=== PATIENT | male | born 1960 | race Caucasian/White ===

== ENCOUNTER → 2019-10-24 | Outpatient (CLI) | payer BC ==
[~2019-10-24] MED LIST: NORCO 325 MG-51 TAB PO
== END ==
LOC: COL.RAD
DX: M48.061 Spinal stenosis, lumbar region without neurogenic claudication (principal); M47.816 Spondylosis without myelopathy or radiculopathy, lumbar region; M79.2 Neuralgia and neuritis, unspecified; M79.605 Pain in left leg

== ENCOUNTER 2020-04-22 02:47 | Observation (INO) | payer OTHER ==
[~2020-04-22] VITALS: Ht 182.9 cm; Wt 90.9 kg
[2020-04-22 03:25] LABS: BASO % 0.1 % (0.0-2.0); EOS % 0.3 % (0-4.0); GRAN # 4.7 (1.4-6.5); HEMATOCRIT 43.1 % (42.0-52.0); LYMPH # 1.5 (1.2-3.4); MEAN CELL VOLUME 86 fl (80.0-100.0); MEAN CORPUSCULAR HEMOGLOBIN 30 pg (27.0-31.0); MEAN CORPUSCULAR HGB CONC 35 g/dl (33.0-37.0); MEAN PLATELET VOLUME 8.9 fl (7.4-10.4); MONO # 0.7 (0.1-0.6); MONO % 10.2 % (1.7-9.3); PLATELET COUNT 160 K/mm3 (130-400); RED BLOOD COUNT 5.03 M/mm3 (4.20-5.60); REDCELL DISTRIBUTION WIDTH-CV 11.7 % (11.5-14.5)
[2020-04-22 03:34] LABS: ANION GAP 10 mmol/L (7-16); BLOOD UREA NITROGEN 11 mg/dL (9-20); CALCIUM 8.1 mg/dL (8.4-10.2); CARBON DIOXIDE 23 mmol/L (22-30); CHLORIDE 103 mmol/L (98-107); GLUCOSE 140 mg/dL (74-106); POTASSIUM 3.5 mmol/L (3.4-5.0); SODIUM 136 mmol/L (137-145)
[2020-04-22 03:48] LABS: TROPONIN-I < 0.012 ng/mL (0.000-0.035)
[2020-04-22 09:02] VITALS: BP 128/72; PULSE 68; TEMP 98.8
--- NOTE | 2020-04-22 09:29 | NUR ---
PHYSICIAN CALLED ABOUT GETTING A DIET. PT PLEASANT, PT AOX4, PT CANNOT EAT PORK PER PROTESTANT RESTRICTIONS. PT SATTING 95% ON RA, DENIES PAIN/DISCOMFORT, PT CLAMMY TO TOUCH, NO FEVER AT THIS TIME, NO OTHER NEEDS AT THIS TIME.
[2020-04-22 12:28] VITALS: BP 110/68; PULSE 67; TEMP 98.1
--- NOTE | 2020-04-22 15:39 | NUR ---
told pt needed urinal emptied, entered pt room, pt upset that "i need water in bathroom, i call for 1L water or empty bottle, i am old i will not change my ways". asked pt to explain this further, pt continued to talk about how he needed water in the bathroom. pt also upset that he had not recieved his pt belongings from ED, belongings were just brought up to floor so i brought them in with a urinal. I think the urinal was what he needed because he took it angrily and said "i cannot wait an hour to pee". pt continued saying he wanted to be discharged, i informed Dr. Hayden of the situation and he recommended to give the pt some time to calm down and if he still wants to leave then he can leave [facility]
[2020-04-22 15:48] VITALS: BP 170/98; PULSE 101; TEMP 98.1
--- NOTE | 2020-04-22 15:55 | NUR ---
dr. castano notified of pt high bp, thinking it is due to stress of situation, will reevaluate
[2020-04-22 17:21] VITALS: BP 140/78
--- NOTE | 2020-04-22 17:34 | NUR ---
PT STILL UPSET ABOUT EARLIER SITUATION. BP STABLE AT THIS TIME, TELEMETRY PLACED BACK ON PT. DENIES PAIN AND SOB. PT ON ROOM AIR.
--- NOTE | 2020-04-22 19:35 | NUR ---
Patient sitting up in the chair upon enter the room. Patient A\O x4. Patient denies any chest pain, SOB/dyspnea, N/V, or diarrhea. Patient currently on room air. Respirations even and unlabored. Occasional non-productive dry cough noted. All scheduled meds given per MAR. Call light within reach. Patient denies any needs at this time.
[2020-04-22 19:50] VITALS: BP 152/86; PULSE 90; TEMP 98.4
--- NOTE | 2020-04-24 09:31 | NUR ---
(late entry 04/23) Miner Operator attempted to contact the patient to complete intake. Will attempt at a later time.
[2020-04-24 10:18] LABS: CALCIUM 8.5 mg/dL (8.4-10.2); CREATININE, serum 0.9 (0.66-1.25); POTASSIUM 3.6 mmol/L (3.4-5.0)
[2020-04-24 13:22] LABS: BASO % 0.3 % (0.0-2.0); EOS % 0.6 % (0-4.0); GRAN # 3.6 (1.4-6.5); GRAN % 52.7 % (42.2-75.2); LYMPH # 2.3 (1.2-3.4); LYMPH % 34.4 % (20.0-51.0); MEAN CELL VOLUME 87 fl (80.0-100.0); MEAN CORPUSCULAR HEMOGLOBIN 30 pg (27.0-31.0); MEAN CORPUSCULAR HGB CONC 34 g/dl (33.0-37.0); MEAN PLATELET VOLUME 9.2 fl (7.4-10.4); MONO # 0.8 (0.1-0.6); MONO % 11.6 % (1.7-9.3); PLATELET COUNT 190 K/mm3 (130-400); RED BLOOD COUNT 4.71 M/mm3 (4.20-5.60); REDCELL DISTRIBUTION WIDTH-CV 11.9 % (11.5-14.5)
== END 2020-04-23 13:30 | disposition home or self-care (01) ==
LOC: COL.ER 02:47 → PEDS 05:48
PROVIDERS: Emergency Medicine; Student in an Organized Health Care Education/Training Program; ADMIT Hospitalist
DX: U07.1 COVID-19 (principal)
CPT/HCPCS: 99222-AI; G0378; J0696; J1100; Q9967

== ENCOUNTER → 2020-05-22 | Outpatient (CLI) | payer OTHER | LOC: COL.RAD 13:00 | DX: R91.8 Other nonspecific abnormal finding of lung field (principal); B99.9 Unspecified infectious disease | CPT/HCPCS: Q9967 ==

== ENCOUNTER → 2021-02-10 | Outpatient (CLI) | payer OTHER | LOC: COL.RAD 16:09 | DX: R05.3 Chronic cough (principal) ==

== ENCOUNTER → 2021-09-25 | Outpatient (CLI) | payer OTHER | LOC: COL.RAD 10:23 | DX: K76.0 Fatty (change of) liver, not elsewhere classified (principal) ==

== ENCOUNTER → 2021-10-13 | Outpatient (CLI) | payer OTHER | LOC: COL.RAD 15:00 | DX: K76.0 Fatty (change of) liver, not elsewhere classified (principal); N28.89 Other specified disorders of kidney and ureter | CPT/HCPCS: Q9967 ==